=== PATIENT | female | born 1950 | race American Indian/Alaskan Native ===

== ENCOUNTER 2018-07-07 22:59 | Inpatient (IN) | payer MEDICARE, OTHER ==
[2018-07-07] MEDS ORDERED: BENADRYL IV ONE (23:30)
[2018-07-07] MEDS ORDERED: NACL 0.9% 1000 ML 1,000 ML IV ONE (23:30)
[2018-07-07] MEDS ORDERED: SOLU-Medrol IV ONE (23:30)
[2018-07-07] MEDS ORDERED: PEPCID IV ONE (23:31)
[2018-07-07] MEDS ORDERED: PROVENTIL IH ONE (23:32)
--- NOTE | 2018-07-07 23:35 | Emergency Department Report ---
ED Allergic Reaction HPI - General Chief complaint: Dyspnea/Respdistress Stated complaint: DIFFICULTY BREATHING Time Seen by Provider: 07/07/18 23:26 Source: patient Mode of arrival: Ambulatory Limitations: No Limitations - History of Present Illness Initial Comments: Patient is 67 years old female with history of hypertension. Patient presented to the ER complaining of generalized itching and difficulty breathing started to 3 hours ago. Patient does not know exactly what's causing her allergic reaction but she thinks this might be from the scraper tender that she ate this evening. Patient stated that she is feeling her throat is tightening. Patient is complaining of generalized rash and itching. MD Complaint: allergic reaction Exposure: unknown Symptoms: rash, itching, difficulty breathing Severity: moderate - Related Data Allergies Allergy/AdvReac Type Severity Reaction Status Date / Time cyclobenzaprine Allergy Unknown Verified 07/07/18 23:09 [From Flexeril] Iodinated Contrast- Oral and Allergy Unknown Verified 07/07/18 23:09 IV Dye Penicillins Allergy Unknown Verified 07/07/18 23:09 ED Review of Systems ROS: Stated complaint: DIFFICULTY BREATHING Other details as noted in HPI Comment: All other systems reviewed and negative Constitutional: denies: chills, fever Respiratory: shortness of breath. denies: cough Cardiovascular: denies: chest pain, palpitations Gastrointestinal: denies: abdominal pain, nausea, vomiting, diarrhea, constipation, hematemesis, hematochezia Musculoskeletal: denies: back pain ED Past Medical Hx - Past Medical History Hx Hypertension: Yes Hx Psychiatric Treatment: Yes (anxiety) Additional medical history: elevated - Surgical History Past Surgical History?: No ED Physical Exam - General Limitations: No Limitations General appearance: alert, in no apparent distress, anxious - Head Head exam: Present: atraumatic, normocephalic, normal inspection - Eye Eye exam: Present: normal appearance, PERRL - ENT ENT exam: Present: normal exam, normal orophraynx, mucous membranes moist - Neck Neck exam: Present: normal inspection, full ROM. Absent: tenderness, meningismus, lymphadenopathy, thyromegaly - Respiratory Respiratory exam: Present: respiratory distress, wheezes, decreased breath sounds. Absent: rales, rhonchi, stridor, accessory muscle use, prolonged expiratory - Cardiovascular Cardiovascular Exam: Present: tachycardia - GI/Abdominal GI/Abdominal exam: Present: soft, normal bowel sounds. Absent: distended, t enderness, guarding, rebound, rigid, organomegaly, mass, bruit, pulsatile mass, hernia - Extremities Exam Extremities exam: Present: normal inspection, full ROM, normal capillary refill - Back Exam Back exam: Present: normal inspection, full ROM. Absent: tenderness, CVA tenderness (R), CVA tenderness (L), muscle spasm, paraspinal tenderness, vertebral tenderness - Neurological Exam Neurological exam: Present: alert, oriented X3, CN II-XII intact, normal gait, reflexes normal - Skin Skin exam: Present: warm, intact, normal color, rash ED Course Vital Signs 07/07/18 07/07/18 07/08/18 23:04 23:58 00:06 Temperature 98 F 98.2 F Pulse Rate 108 H 91 H Pulse Rate [ 94 H Anterior Bilateral Throughout] Respiratory 26 H 26 H Rate Respiratory 14 Rate [Anterior Bilateral Throughout] Blood Pressure 154/89 Blood Pressure 189/90 154/89 [Left] O2 Sat by Pulse 94 98 Oximetry 07/08/18 00:23 Temperature Pulse Rate Pulse Rate [ 92 H Anterior Bilateral Throughout] Respiratory Rate Respiratory 14 Rate [Anterior Bilateral Throughout] Blood Pressure Blood Pressure [Left] O2 Sat by Pulse Oximetry ED Medical Decision Making - Lab Data Result diagrams: 07/07/18 23:42 07/07/18 23:42 - Radiology Data Radiology results: report reviewed Referring Physician: BENNIE CASTELLANOS Patient Name: SHADIA ROMERO Date of : 1950 Sex: Female Report Date: 2018-07-08 Report Status: Finalized Findings [address] [address] XRay Report Signed Patient: SHADIA ROMERO MR#: [id number] : 1950 Acct:[id number] Age/Sex: 67 / F ADM Date: 07/07/18 Loc: ED Attending Dr: Ordering Physician: BENNIE CASTELLANOS Date of Service: 07/07/18 Procedure(s): XR chest 1V ap Accession Number(s): [id number] cc: BENNIE CASTELLANOS Fluoro Time In Minutes: PROCEDURE: PORTABLE CHEST TECHNIQUE: A portable AP chest radiograph was obtained at 07/08/2018 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 CPT 44996 HISTORY: Chest pain COMPARISONS: None. FINDINGS: Heart: Normal. Mediastinum/Vessels: Normal. Lungs/Pleural space: Normal. Bony thorax: No acute osseous abnormality. Life support devices: None. IMPRESSION: No acute cardiopulmonary abnormality. This document is electronically signed by Cailn Swanson MD., July 08 2018 01:08:12 AM ET Transcribed By: CO Dictated By: CALIN SWANSON MD Electronically Authenticated By: CALIN SWANSON MD Signed Date/Time: 07/08/18109 DD/ TD/TT: 07/08/1811 - Medical Decision Making Patient is 67 years old female with history of hypertension. Patient presented to the ER complaining of generalized itching and difficulty breathing started to 3 hours ago. Patient does not know exactly what's causing her allergic reaction but she thinks this might be from the scraper tender that she ate this evening. Patient stated that she is feeling her throat is tightening. Patient is complaining of generalized rash and itching. Patient evaluated by me multiple times. Patient stated that she is feeling much better. Her throat is not feeling tight anymore. Chest x-ray and labs re viewed and is unremarkable. I discussed the patient and his doctor Lorenzo, he agreed to admit the patient to the medical service for further management. Critical Care Time: Yes Critical care time in (mins) excluding proc time.: 30 Critical care attestation.: If time is entered above; I have spent that time in minutes in the direct care of this critically ill patient, excluding procedure time. ED Disposition Clinical Impression: Acute allergic reaction Disposition: -09 OP ADMIT IP TO THIS HOSP Is pt being admited?: Yes Condition: Stable
[2018-07-08 00:18] LABS: Basophils # (Auto) 0.1 K/mm3 (0.0-0.1); Basophils % (Auto) 1.1 % (0.0-1.8); Eosinophils # (Auto) 0.4 K/mm3 (0.0-0.4); Eosinophils % (Auto) 3.8 % (0.0-4.3); Hematocrit 39.4 % (30.3-42.9); Hemoglobin 13.1 gm/dl (10.1-14.3); Lymphocytes # (Auto) 3.6 K/mm3 (1.2-5.4); Lymphocytes % (Auto) 38.4 % (13.4-35.0); Mean Corpuscular HGB Conc 33 % (30-34); Mean Corpuscular Volume 91 fl (79-97); Monocytes # (Auto) 0.8 K/mm3 (0.0-0.8); Monocytes % (Auto) 8.2 % (0.0-7.3); Platelet Count 395 K/mm3 (140-440); Red Blood Count 4.34 M/mm3 (3.65-5.03); Red Cell Distribution Width 14.6 % (13.2-15.2)
[2018-07-08 00:34] LABS: BUN/Creatinine Ratio 18; Blood Urea Nitrogen 18 mg/dL (7-17); Hemolysis Index 172
--- NOTE | 2018-07-08 01:10 | XRay Report ---
PROCEDURE: PORTABLE CHEST TECHNIQUE: A portable AP chest radiograph was obtained at 07/08/2018 5:12 MARKETING RESEARCH ANALYST. CPT 40414 HISTORY: Chest pain COMPARISONS: None. FINDINGS: Heart: Normal. Mediastinum/Vessels: Normal. Lungs/Pleural space: Normal. Bony thorax: No acute osseous abnormality. Life support devices: None. IMPRESSION: No acute cardiopulmonary abnormality. This document is electronically signed by Calin Ramires MD., July 08 2018 01:08:12 AM ET
[2018-07-08] MEDS ORDERED: TYLENOL PO ONE (01:28)
[2018-07-08] MEDS ORDERED: TYLENOL PO PRN (02:18)
[2018-07-08] MEDS ORDERED: ZOFRAN IV PRN (02:18)
--- NOTE | 2018-07-08 03:25 | History and Physical Report ---
DATE OF ADMISSION: 07/08/2018 CHIEF COMPLAINT: Skin rash with itching. Other complaint includes tightness in the throat area. HISTORY OF PRESENT ILLNESS: The patient is a 67-year-old female who presented to the Emergency Room with generalized itching and skin rash with difficulty in breathing due to tightness in the throat. The patient is not sure of what she is reacting to. She thinks it might have been from the churn tender that she ate in the evening. She said that after eating churn tender, she started noticing that her throat was tightening and then started having generalized rash and itching. There is history of shortness of breath, but no chest pain. There is no history of dizziness. No history of nausea or vomiting. No fever. PAST MEDICAL HISTORY: Pertinent for hypertension, anxiety disorder. PAST SURGICAL HISTORY: Unremarkable. FAMILY HISTORY: Noncontributory. SOCIAL HISTORY: The patient does not smoke cigarette, does not drink alcohol and does not use illicit drug. MEDICATIONS: The patient's home medications include diazepam 5 mg by mouth t.i.d., lisinopril/HCTZ 10/12.5 one by mouth daily, simvastatin 10 mg by mouth twice daily. ALLERGIES: The patient is allergic to CYCLOBENZAPRINE. Also, the patient is allergic to IODINATED CONTRAST DYE and PENICILLIN. REVIEW OF SYSTEMS: CONSTITUTIONAL: There is no fever, no chills, no diaphoresis. HEENT: There is no headache or sore throat. CARDIOVASCULAR SYSTEM: There is no chest pain, no orthopnea. RESPIRATORY SYSTEM: Shortness of breath is present, no cough. GASTROINTESTINAL SYSTEM: There is tightening in the throat with dysphagia, but no abdominal pain, no diarrhea, no constipation, and no nausea or vomiting. NEUROLOGICAL SYSTEM: There is no numbness, no dizziness, no altered mental status. MUSCULOSKELETAL SYSTEM: There is no joint pain or swelling. DERMATOLOGICAL SYSTEM: Generalized skin rash with itching noted. GENITOURINARY SYSTEM: There is no dysuria, hematuria, or flank pain. Rest of system review is normal. PHYSICAL EXAMINATION: GENERAL: At the time of exam, the patient was found to be alert and oriented x 3 and not in acute distress. VITAL SIGNS: At the initial time of presentation showed temperature of 98 degrees Fahrenheit, pulse of 108, respirations 26, blood pressure 189/90, O2 sat of 94% on room air. HEENT: Showed pupils to be equal, round, reactive to light and accommodating. Extraocular muscles are intact. NECK: Supple with no JVD or carotid bruit. CARDIOVASCULAR SYSTEM: Shows normal first and second heart sounds with no gallops or murmurs. RESPIRATORY SYSTEM: Showed good air entry on both sides of the lung with no abnormal breath sounds. GASTROINTESTINAL SYSTEM: Shows abdomen to be full, soft, nontender with no organomegaly or rigidity. NEUROLOGICAL: Shows no focal deficit. MUSCULOSKELETAL SYSTEM: Shows no joint swelling or tenderness. DERMATOLOGICAL SYSTEM: Shows maculopapular rash scattered all over the body. GENITOURINARY SYSTEM: Shows no costovertebral angle tenderness. PERTINENT LABORATORY AND IMAGING STUDIES: The patient had chest x-ray done that shows no acute cardiopulmonary lesion. The patient's lab results show CBC with normal white count, normal hemoglobin and normal hematocrit with CBC differential showing elevated lymphocyte count of 38.4% and elevated monocyte count of 8.2%. The patient's chemistry was unremarkable. DIAGNOSIS: Acute allergic reaction. PLAN OF ACTION: 1. The patient will be admitted to telemetry. 2. The patient will be on IV normal saline at 75 mL an hour. 3. The patient will be on IV Solu-Medrol 60 mg every 8 hours. 4. The patient will be on IV Benadryl 25 mg every 6 hours as needed for itching and rash. 5. The patient will be on Pepcid 20 mg by mouth twice daily. 6. The patient will be on IV Zofran 4 mg every 8 hours for nausea and vomiting and will be on Tylenol 650 mg by mouth every 4 hours for fever and headache. 7. The patient's home medications will be started as shown in the medication reconciliation section. The patient's diet will be low sodium diet with DVT prophylaxis provided by sequential compressive device. JOB# [id number] [facility]/SADIA CAMPBELLD
[2018-07-08] MEDS: NACL 0.9% 1000 ML 1,000 ML IV SCH ×2 (04:32→16:45)
[2018-07-08] MEDS: BENADRYL IV PRN ×2 (06:11→21:24)
[2018-07-08] MEDS: SOLU-Medrol IV SCH ×3 (06:12→21:23)
[2018-07-08] MEDS: ZESTRIL PO SCH (09:38)
[2018-07-08] MEDS: PEPCID PO SCH ×2 (09:38→21:24)
[2018-07-08] MEDS: VALIUM PO SCH ×4 (09:39→21:24)
[2018-07-08] MEDS: HCTZ PO SCH (09:39)
[2018-07-08] MEDS ORDERED: NON-FORMULARY (Lisinopril/Hydrochlorothiazide [Zestoretic 10-12.5 Mg] 1 TAB) PO SCH (10:00)
[2018-07-08] MEDS ORDERED: NON-FORMULARY (Simvastatin [Zocor] 20 MG) PO SCH (10:00)
--- NOTE | 2018-07-08 19:21 | Event Note ---
Date: 07/08/18 Patient was admitted this morning with allergic reaction to the cleaning solution Patient felt slightly better still has some shortness of breath and itching Alert awake oriented 3 Not in acute distress, vital signs reviewed Physical examination unremarkable Medical records reviewed agree with the current management Possible discharge home tomorrow if stable Plan of care reviewed with the patient , family at the bedside and her nurse
[2018-07-08] MEDS: PRAVACHOL PO SCH (21:24)
[2018-07-09] MEDS: SOLU-Medrol IV SCH ×2 (05:18→14:29)
[2018-07-09] MEDS: NACL 0.9% 1000 ML 1,000 ML IV SCH (05:18)
[2018-07-09] MEDS: PROVENTIL IH SCH ×4 (08:48→21:26)
[2018-07-09] MEDS: VALIUM PO SCH ×3 (09:34→17:33)
[2018-07-09] MEDS: HCTZ PO SCH (09:34)
[2018-07-09] MEDS: PEPCID PO SCH (09:34)
[2018-07-09] MEDS: ZESTRIL PO SCH (09:35)
--- NOTE | 2018-07-09 12:23 | Progress Note ---
Assessment and Plan Assessment and plan: --Acute Bronchitis; Oxygen titrated O2 sats more than 90%, nebulizers, IV steroids, add IV antibiotics Cough medicine, supportive care --Allergic reaction to cleaning chemicals at home; IV steroids, IV antihistamines and supportive care --Hypertension; moderate control Continue current antihypertensives and when necessary medications Will hold lisinopril --Morbid obesity; BMI 43.1 Advised diet modification and exercise as tolerated and weight reduction When medically stable --DVT prophylaxis; Lovenox Closely monitor the patient and adjust management as needed Possible discharge in 1-2 days if stable Plan of care is reviewed with the patient , at the bedside and her nurse Patient is stable to be transferred out of telemetry to medical floor History Interval history: Patient was admitted with allergic reaction to the cleaning solution Patient says she's not feeling well today Alert awake oriented 3 mild distress Vital signs noted Hospitalist Physical - Constitutional Vitals: Temp Pulse Resp BP Pulse Ox 97.4 F L 93 H 20 143/79 95 07/09/18 11:13 07/09/18 11:12 07/09/18 11:12 07/09/18 11:12 07/09/18 11:12 General appearance: Present: mild distress, well-nourished, obese (morbidly obese) - EENT Eyes: Present: PERRL, EOM intact - Neck Neck: Present: supple, normal ROM - Respiratory Respiratory effort: normal Respiratory: bilateral: diminished, wheezing, negative: rales, rhonchi - Cardiovascular Rhythm: regular Heart Sounds: Present: S1 & S2 - Extremities Extremities: no ischemia, No edema - Abdominal General gastrointestinal: soft, non-tender, non-distended, normal bowel sounds - Integumentary Integumentary: Present: clear, warm - Psychiatric Psychiatric: appropriate mood/affect, cooperative - Neurologic Neurologic: CNII-XII intact, moves all extremities Results - Labs CBC & Chem 7: 07/07/18 23:42 07/07/18 23:42 Labs: Laboratory Last Values WBC 9.4 K/mm3 (4.5-11.0) 07/07/18 23:42 RBC 4.34 M/mm3 (3.65-5.03) 07/07/18 23:42 Hgb 13.1 gm/dl (10.1-14.3) 07/07/18 23:42 Hct 39.4 % (30.3-42.9) 07/07/18 23:42 MCV 91 fl (79-97) 07/07/18 23:42 MCH 30 pg (28-32) 07/07/18 23:42 MCHC 33 % (30-34) 07/07/18 23:42 RDW 14.6 % (13.2-15.2) 07/07/18 23:42 Plt Count 395 K/mm3 (140-440) 07/07/18 23:42 Lymph % (Auto) 38.4 % (13.4-35.0) H 07/07/18 23:42 [place] % (Auto) 8.2 % (0.0-7.3) H 07/07/18 23:42 Eos % (Auto) 3.8 % (0.0-4.3) 07/07/18 23:42 Baso % (Auto) 1.1 % (0.0-1.8) 07/07/18 23:42 Lymph # 3.6 K/mm3 (1.2-5.4) 07/07/18 23:42 [place] # 0.8 K/mm3 (0.0-0.8) 07/07/18 23:42 Eos # 0.4 K/mm3 (0.0-0.4) 07/07/18 23:42 Baso # 0.1 K/mm3 (0.0-0.1) 07/07/18 23:42 Seg Neutrophils % 48.5 % (40.0-70.0) 07/07/18 23:42 Seg Neutrophils # 4.5 K/mm3 (1.8-7.7) 07/07/18 23:42 Sodium 139 mmol/L (137-145) 07/07/18 23:42 Potassium 4.5 mmol/L (3.6-5.0) 07/07/18 23:42 Chloride 98.3 mmol/L (98-107) 07/07/18 23:42 Carbon Dioxide 25 mmol/L (22-30) 07/07/18 23:42 Anion Gap 20 mmol/L 07/07/18 23:42 BUN 18 mg/dL (7-17) H 07/07/18 23:42 Creatinine 1.0 mg/dL (0.7-1.2) 07/07/18 23:42 Estimated GFR > 60 ml/min 07/07/18 23:42 BUN/Creatinine Ratio 18 % 07/07/18 23:42 Glucose 139 mg/dL (65-100) H 07/07/18 23:42 Calcium 9.0 mg/dL (8.4-10.2) 07/07/18 23:42
[2018-07-09] MEDS ORDERED: TESSALON PERLES PO PRN (18:37)
[2018-07-09] MEDS ORDERED: APRESOLINE IV PRN (18:39)
[2018-07-09] MEDS ORDERED: LASIX IV ONE (18:42)
[2018-07-09] MEDS ORDERED: LOVENOX SUB-Q SCH (22:00)
[2018-07-09] MEDS ORDERED: DELTASONE PO ONE ×2 (22:00→23:00)
[2018-07-09] MEDS: PRAVACHOL PO SCH (22:24)
[2018-07-10] MEDS: SOLU-Medrol IV SCH ×3 (02:21→14:00)
[2018-07-10] MEDS: PEPCID PO SCH ×2 (02:21→10:00)
[2018-07-10] MEDS: COLACE PO SCH ×2 (02:21→10:00)
[2018-07-10] MEDS: VALIUM PO SCH ×3 (02:22→14:00)
[2018-07-10 06:10] LABS: BUN/Creatinine Ratio 23; Blood Urea Nitrogen 18 mg/dL (7-17); Calcium 9.2 mg/dL (8.4-10.2); Hemolysis Index 28
[2018-07-10] MEDS: PROVENTIL IH SCH ×2 (07:52→13:21)
[2018-07-10] MEDS ORDERED: CLARITIN-D 24HR PO SCH (10:00)
[2018-07-10] MEDS: HCTZ PO SCH (10:00)
[2018-07-10] MEDS ORDERED: ZITHROMAX 500 MG in NACL 0.9% 250ML 250 ML IV SCH (10:00)
[2018-07-10 11:25] VITALS: BP 131/80
--- NOTE | 2018-07-10 12:16 | Discharge Summary ---
Providers - Providers Date of Admission: 07/08/18 01:27 Date of discharge: 07/10/18 Attending physician: JENNY CURIEL Primary care physician: BLOCK SETTER GYPSUM Hospitalization Reason for admission: Allergic reaction/itching/shortness of breath Condition: Stable Pertinent studies: CXR : no acute abnormality Hospital course: 67 years old female with history of hypertension was admitted through ER with generalized itching and difficulty breathing started after exposure to some home cleaning chemicals. Managed with IV steroids ,antihistamines, bronchodilators and supportive care. Patient advised weight reduction when medically stable. Today patient is better,no new complaints,vital signs stable Physical exam unremarkable. Patient is stable at discharge. Discharge Diagnosis: --Allergic reaction to cleaning chemicals at home; IV steroids, IV antihistamines and supportive care --Acute Bronchitis; Oxygen titrated O2 sats more than 90%, nebulizers, IV steroids, oral antibiotics, Cough medicine, supportive care --Hypertension; moderate control Continue current antihypertensives and when necessary medications Will hold lisinopril --Morbid obesity; BMI 43.1 Advised diet modification and weight reduction When medically stable Disposition: DC-01 TO HOME OR SELFCARE Time spent for discharge: 32 min Core Measure Documentation - Palliative Care Palliative Care/ Comfort Measures: Not Applicable - Core Measures Any of the following diagnoses?: none Exam - Constitutional Vitals: Temp Pulse Resp BP Pulse Ox 98.4 F 95 H 20 131/80 92 07/10/18 11:23 07/10/18 11:24 07/10/18 11:24 07/10/18 11:24 07/10/18 11:24 General appearance: Present: no acute distress, well-nourished, obese (morbidly obese) - EENT Eyes: Present: PERRL, EOM intact Plan Activity: advance as tolerated Diet: low salt Follow up with: RAHEEL JACKSON MD [Referring] - 3-5 Days Prescriptions: diphenhydrAMINE [Benadryl CAP] 25 mg PO Q8HR PRN #15 capsule PRN Reason: Allergy Symptoms predniSONE [Deltasone] 10 mg PO QDAY #10 tab ALBUTEROL Inhaler(NF) [VENTOLIN Inhaler(NF)] 1 puff IH QID PRN #1 inha PRN Reason: Shortness Of Breath Azithromycin [Zithromax Z-DAYTON] 0 mg PO DAILY #1 tab
== END 2018-07-10 15:09 | disposition home or self-care (01) | DRG 202 ==
LOC: ED 22:59 → 4A 07-08 01:27
PROVIDERS: ADMIT Internal Medicine; ATTEND Internal Medicine
DX: J20.9 Acute bronchitis, unspecified (principal); Z68.41 Body mass index [BMI] 40.0-44.9, adult; T78.40XA Allergy, unspecified, initial encounter; X58.XXXA Exposure to other specified factors, initial encounter; I10 Essential (primary) hypertension; F41.9 Anxiety disorder, unspecified; E66.01 Morbid (severe) obesity due to excess calories; Z88.0 Allergy status to penicillin; Z71.3 Dietary counseling and surveillance; Z91.041 Radiographic dye allergy status
CPT/HCPCS: 36415; 71045; 80048; 83735; 85025; 94640; 96361; 96374; 96375; G0378; A9270-GY; J0456; J1200; J1650; J2930; J7030; J7050; J7512